=== PATIENT | female | born 1980 | race Two or more races ===

== ENCOUNTER → 2018-06-25 | Day surgery (SDC) | payer OTHER ==
[~2018-06-25] MED LIST: B-100 COMPLEX100 MG PO; NAC600 MG PO; SINGULAIR10 MG PO
== END | disposition home or self-care (01) ==
LOC: ADM 06-20 09:15 → CIR.AMB 06:06
DX: N84.0 Polyp of corpus uteri (principal)

== ENCOUNTER 2024-10-19 13:24 | Outpatient (CLI) | payer OTHER | END 2024-10-19 13:29 | disposition home or self-care (01) | LOC: SONOGRAMA 13:24 | PROVIDERS: ATTEND Pathology Anatomic Pathology | DX: D34 Benign neoplasm of thyroid gland (principal); E07.89 Other specified disorders of thyroid; E04.2 Nontoxic multinodular goiter ==

== ENCOUNTER 2025-04-12 14:33 | Outpatient (CLI) | payer OTHER | END 2025-04-12 14:38 | disposition home or self-care (01) | LOC: RAD 14:33 | PROVIDERS: ATTEND Obstetrics & Gynecology | DX: R07.9 Chest pain, unspecified (principal) ==

== ENCOUNTER 2025-04-21 14:24 | Outpatient (CLI) | payer OTHER | END 2025-04-21 14:32 | disposition home or self-care (01) | LOC: EKG 14:24 | PROVIDERS: ATTEND Obstetrics & Gynecology | DX: R07.9 Chest pain, unspecified (principal) ==

== ENCOUNTER 2025-05-12 10:00 | Day surgery (SDC) | payer OTHER ==
[~2025-05-12 10:00] MED LIST changes: +OMEPRAZOLE-BIC1 EAC1 PO; +PREGABALIN75 MG PO; +PROBIOTIC250 MG PO; +ZOLOFT50 MG PO
[2025-05-12] MEDS ORDERED: POVIDONE-IODINE 118 ML BOTT TOP ONE (11:50)
[2025-05-12] MEDS ORDERED: MORPHINE SULFATE 4 MG/ML VIAL IV PRN (13:45)
[2025-05-12] MEDS ORDERED: PROMETHAZINE HCL 50 MG/ML AMPUL IM ONE (13:45)
== END 2025-05-12 19:00 | disposition home or self-care (01) ==
LOC: CIR.AMB 10:00
PROVIDERS: ATTEND Obstetrics & Gynecology
DX: N84.0 Polyp of corpus uteri (principal)